=== PATIENT | male | born 1955 | race Caucasian/White ===

== ENCOUNTER 2019-07-15 00:54 | Day surgery (SDC) | payer MEDICARE, SELFPAY ==
[2019-07-12 09:34] VITALS: BMI 22.8
[2019-07-15 09:14] VITALS: BP 186/91; PULSE 68; RESP 16; TEMP 36.3; O2SAT 100
--- NOTE | 2019-07-15 09:33 | P.PNAN_ITS ---
Anes - Initial Pre Proc Eval Procedure: Operation Date: 07/15/19 09:30 Proposed Procedures p Screening Colonoscopy - Mukul Washington MD Date/Time: 07/15/19 09:33 Surgeon: Mukul Washington MD Pre Op Diagnosis: Neoplasm Screening Patient Data Age: 64 Gender: M Height: 5 ft 9 in Weight: 68.1 kg Last Vital Signs Temp 36.3 C L 07/15/19 09:14 Pulse 68 07/15/19 09:14 Resp 16 07/15/19 09:14 BP 186/91 H 07/15/19 09:14 Pulse Ox 100 07/15/19 09:14 Allergies Allergy/AdvReac Type Severity Reaction Status Date / Time No Known Allergies Allergy Unverified 07/15/19 09:12 Home Medications Medication Instructions Recorded Confirmed Type No Home Medications 07/12/19 07/15/19 History Patient hx anesthesia problems: none Family hx anesthesia problems: none [facility] Past Medical History Medical History (Updated 07/15/19 @ 09:34 by Diego Santillan MD) Arthritis Surgical History Surgical History (Updated 07/15/19 @ 09:34 by Diego Santillan MD) H/O arthroscopic knee surgery S/P ACL repair Anes - Eval Final PreProcedure Day of Procedure 07/15/19 09:33 Patient weight: normal Heart: regular rate and rhythm Lungs: clear to auscultation Airway: Mallampati scale class II Neurological: alert and oriented Last oral intake: >/= 8 hours ASA classification: II Emergent: no Anesthetic plan: proceed Anesthesia type and monitoring: general GIVS and standard monitoring Informed Consent: The patient's anesthetic plan and its attendant risks and benefits were discussed with the patient/family/POA. Questions were solicited and answers provided to the satisfaction of the patient/family/POA.
[2019-07-15] MEDS: LACTATED RINGERS 1,000 ML 150 ML IV CONT (09:36)
--- NOTE | 2019-07-15 09:49 | PM.HPGS ---
History of Present Illness History of Present Illness Consent: Risks, benefits, and alternatives have been discussed and questions answered. Patient agrees to proceed with procedure. Chief complaint: Neoplasm Screening Narrative: Michael Shearer is a 64 year old W male Referred for his 1st screening colonoscopy. Patient is asymptomatic and there is no family history of colorectal polyps 0r cancer [facility] Past Medical History Medical History Arthritis Surgical History Surgical History H/O arthroscopic knee surgery S/P ACL repair Meds Home Medications and Allergies Home Medications Medication Instructions Recorded Confirmed Type No Home Medications 07/12/19 07/15/19 History Allergies Allergy/AdvReac Type Severity Reaction Status Date / Time No Known Allergies Allergy Unverified 07/15/19 09:12 Vital Signs Vital Signs - 24 hr 07/15/19 09:14 Temperature 36.3 C L Pulse Rate 68 Respiratory Rate 16 Blood Pressure 186/91 H Pulse Oximetry 100 Exam Const: Orientation/consciousness: patient oriented x3 Resp: Auscultation: clear to auscultation bilaterally Cardio: Rate: regular rate Rhythm: regular rhythm Heart sounds: no murmurs GI: GI Palp: Yes Soft to palpation, No Tenderness to palpation present (GI), Yes No hepatosplenomegaly present and No Palpable mass present Auscultation: normal bowel sounds Neuro: General: patient oriented x3 and no focal motor deficits Extrem: General: no pedal edema Assessment and Plan Additional Plan screening colonoscopy in average risk patient
[2019-07-15 11:04] VITALS: BP 158/79; PULSE 63; RESP 17; O2SAT 99
[2019-07-15 11:14] VITALS: BP 170/81; PULSE 59; RESP 16; O2SAT 100
[2019-07-15 11:24] VITALS: BP 166/89; PULSE 62; RESP 20; O2SAT 100
== END 2019-07-15 11:35 | disposition home or self-care (01) ==
PROVIDERS: PCP Internal Medicine; Visit Provider Internal Medicine Gastroenterology
PROC: 0DJD8ZZ Inspection of Lower Intestinal Tract, Via Natural or Artificial Opening Endoscopic (ICD-10-PCS; CPT 45378; principal; 2019-07-15 09:30)
DX: Z12.11 Encounter for screening for malignant neoplasm of colon (principal); K64.8 Other hemorrhoids
CPT/HCPCS: G0121; J2001; J2704; J7120